=== PATIENT | male | born 1965 | race Caucasian/White ===

== ENCOUNTER 2016-07-19 09:59 | Inpatient (IN) | payer MEDICARE, OTHER ==
--- NOTE | ~2016-07-19 | CN ---
Consultation Report [facility] [address] [place]. [address] NAME: DAYA CARBALLO : 67 STATUS : ADM IN [facility]#: [id number] AGE: 51 ADM/REG DATE : 07/19/16 MR#: [id number] REPORT SERV DATE: 07/19/16 DICTATED BY: MICHAEL ALLEN IV DATE: 07/19/16 REPORT STATUS : Draft TRANSCRIBED BY: DEVIN DATE: 07/19/16 CRITICAL CARE CONSULT DATE OF CONSULTATION: 07/19/2016 REASON FOR REQUEST: Seizures, alcohol, and tobacco dependency status post radical neck dissection. History is obtained from the records and somewhat from the patient. HISTORY: Mr. 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 The patient initially presented in October of 2015 with difficulty swallowing. Evaluation demonstrated a mass in the epiglottic region extending into the arytenoids. The patient underwent radiation therapy, however, has had recent recurrence on biopsy in early June this year. The patient underwent radical neck dissection today. He was hemodynamically stable, however, sent to the ICU post procedure. He has the seizure disorder as noted, took his morning Dilantin dose. The patient currently drinks between 6 and 12 beers a day and states he has not had withdrawal symptoms in the past. He continues to be an active smoker at least a pack of cigarettes a day. He denies any chest pain or current dyspnea though is somewhat somnolent still postoperatively. He has a trach collar in position. PULMONARY HISTORY: Remarkable for no history of childhood asthma. I see no pulmonary function studies in the system, however, the patient has CT scan demonstrating centrilobular and paraseptal emphysematous changes. He is a current smoker nodding between 1 and two packs cigarettes a day. Smoking all of his life. He is currently disabled. Immunization status is not documented. PAST MEDICAL HISTORY: 1. Seizure disorder on Dilantin therapy. He nods that he has had no recent seizures. 2. Alcohol and tobacco dependency. 3. Recurrent squamous cell carcinoma in the supraglottic region. 4. Reflux disease. SURGERIES: 1. Hemicolectomy for diverticulitis. 2. Partial gastrectomy though the patient will not respond whether he had ulcers in the past. 3. Hernia repair with mesh replacement and removal. ALLERGIES: NO KNOWN DRUG ALLERGIES. CURRENT MEDICATIONS: I cannot find the patient's home med list, however, he nods that he is on Dilantin 200 mg twice a day. He has Xanax and oxycodone at home as well as a morphine ER. Consultation Report [facility] [address] [place]. [address] NAME: DAYA CARBALLO : 67 STATUS : ADM IN PAT#: [id number] AGE: 51 ADM/REG DATE : 07/19/16 MR#: [id number] REPORT SERV DATE: 07/19/16 DICTATED BY: MICHAEL ALLEN IV DATE: 07/19/16 REPORT STATUS : Draft TRANSCRIBED BY: DEVIN DATE: 07/19/16 SOCIAL HISTORY: Remarkable for 12 to 6 beers a day. He smokes 1-2 packs cigarettes a day, and he smokes marijuana. He denies illicit drug use. He is reportedly , has four children. FAMILY HISTORY: Remarkable for diabetes, unspecified cancer, stroke, and seizure activity. REVIEW OF SYSTEMS: A 14-systems reviewed and pertinent positives as noted above. PHYSICAL EXAMINATION: GENERAL: This is a chronically ill-appearing, thin elderly male, appearing older than stated age in no current distress. VITAL SIGNS: Temperature is 98, respiratory rate 16, saturation 98% on a trach collar. Pulse is 63, blood pressure is 157/76. HEENT EXAM: Normocephalic and atraumatic. Extraocular movements are intact. Pupils react to light. Sclerae and conjunctivae normal. He has a nasogastric tube in the right nares. He will not cooperate with exam of his mouth but appears to be edentulous. He has postsurgical changes of radical neck dissection with kat in position. He has an open tracheostomy with trach collar in position. I did not palpate his neck. CHEST: The patient has right greater than left expiratory rhonchi with decreased breath sounds. There are no crackles or true wheezes noted. CARDIOVASCULAR: Jugular venous pulsations are difficult to elicit. Carotids are not attempted with the recent surgery. He has a regular S1, S2 with no clear murmur or S3. Peripheral pulses are slightly diminished. ABDOMEN: The abdomen is scaphoid, large surgical scars noted. There is no palpable hepatosplenomegaly or mass. GENITOURINARY: The patient has normal male external genitalia. Shelley catheter in place. EXTREMITIES: Demonstrate no cyanosis, clubbing, or palpable cords. NEUROLOGIC: He is able to follow commands. Strength is 5-/5 and sensation intact to light touch. LABS: KUB demonstrates a nasogastric tube to be in the stomach. No chest x-ray has been obtained. CBC: Hemoglobin is 12.9, hematocrit 36.4, platelet count was 323,000. White count 11.3. Chemistries; sodium 140, potassium 3.9, chloride 103, bicarb 29, BUN 16, creatinine 0.87, glucose of 87, and calcium is 9.3. ASSESSMENT AND PLAN: 1. Respiratory. The patient likely has COPD with clear underlying emphysematous changes with centrilobular and paraseptal emphysema. He will be given albuterol 4 times a day per Dr. Erazo and q.2 hours as needed. He will be given Pulmicort 1 mg twice a day and Brovana unit dose twice a day. Chest x-ray will be obtained in the morning. Oxygen will be titrated to maintain saturation in the 90% to 94% range. Consultation Report [address] [place]. [address] NAME: DAYA CARBALLO : 67 STATUS : ADM IN [facility]#: [id number] AGE: 51 ADM/REG DATE : 07/19/16 MR#: [id number] REPORT SERV DATE: 07/19/16 DICTATED BY: MICHAEL ALLEN IV DATE: 07/19/16 REPORT STATUS : Draft TRANSCRIBED BY: DEVIN DATE: 07/19/16 2. Neurologic. Dilantin will be given via nasogastric tube 200 mg elixir twice a day, Dilantin level will be obtained. Thiamine will be given 200 mg IV in addition to a banana bag given by Dr. Erazo, Habitrol patch 21 mg a day for tobacco dependency. He will undergo seizure precautions and alcohol withdrawal precautions. Precedex will be given initially with the addition of Ativan if he is needing further medications. 3. Renal. Phos and Mag level will be added in the lab. Electrolyte replacement protocol has been ordered. Urinalysis will be obtained. 4. Endocrinologic. Thyroid functions will be obtained status post radiation to his neck. 5. Hematologic. Pneumatic compression stockings for deep vein thrombosis prophylaxis. 6. Gastrointestinal. Dietary consult has been ordered to initiate feeds tomorrow. Pepcid will be given for gastrointestinal prophylaxis. 7. Infectious disease. Empiric antibiotics have been ordered per ENT to include Cleocin and Ancef. 8. Cardiovascular. EKG will be obtained in the morning. Hydralazine will be given as needed for blood pressure greater than 160. Thank you for consulting us. We will follow patient with you. ALFONZO/DEVIN Michael Allen IV, M.D. / [id number] CC: Yordy Erazo M.D.
--- NOTE | ~2016-07-19 | OP ---
Record Of Operation [facility] [address] [place]. 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 PROCEDURE PERFORMED: 1. Total laryngectomy. 2. Bilateral neck dissections. 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 Postoperatively, the patient has had continued pain and difficulty with laryngeal use and decreased p.o. intake. He has had continued weight loss. Direct laryngoscopy and biopsy following treatment revealed extensive necrosis of the laryngeal cartilage, tissues, as well as some residual mass of squamous carcinoma. The patient was felt to benefit from total laryngectomy and bilateral neck dissection and was scheduled for such. OPERATIVE PROCEDURE AND FINDINGS: After informed consent was obtained, the patient was brought to the operating room, and placed on the operating table in a supine position, at which point, general endotracheal anesthesia was induced by Anesthesia Service following GlideScope intubation. The skin of the neck was prepped and draped in standard sterile fashion down to the costal margin. A U shaped incision was planned going from mastoid tip- to-mastoid tip and draping down into the lower neck. At this point, subplatysmal flap was elevated using Bovie cautery and this exposed the fascia layers of the anterior neck. The right neck was addressed first. The fiber lymphatic packet was grasped anterior to the sternocleidomastoid muscle and dissection was taken down sharply and bluntly down to the lateral floor of the neck. The soft tissue packet was taken from posterior to up and over the carotid, internal jugular vein and into the anterior neck. The process was repeated for the left neck. No sign of thoracic duct injury was noted in the left neck. At this point, the laryngectomy was begun. The hyoid bone was identified. The strap muscles were dissected off the superior surface of the hyoid bone and were detached from this area. At this point, the thyroid gland was dissected off the surface of the specimen and the right thyroid lobe was reflected laterally. The left thyroid lobe was sent with the specimen. The pharynx was then entered at approximately the level of the epiglottis with the epiglottic cartilage had been largely distorted by cancer and radiation. Once entered into the pharynx, a curved scissor such as a Metzenbaum scissor was used to excise the left lateral piriform sinus and left supraglottic tissues. Dissection was carried to the posterior aspect of the cricoid cartilage along the interarytenoid area and then carried up preserving the piriform sinus on the right side. This freed the superior aspect of the larynx from its connection to the pharyngeal mucosa. Dissection then began at the level of the trachea and the constitution party wall was identified and trachea and esophagus were . Record Of Operation [address] [place]. [address] NAME: DAYA CARBALLO : 67 STATUS : ADM IN PAT#: [id number] AGE: 51 ADM/REG DATE : 07/19/16 MR#: [id number] REPORT SERV DATE: 07/24/16 DICTATED BY: LUCIO ERAZO DATE: 07/24/16 REPORT STATUS : Draft TRANSCRIBED BY: DEVIN DATE: 07/24/16 Some sternohyoid muscles were preserved, covered the wound following excision. Next, a finger was inserted at the level of the pharynx into the upper esophagus and a 15 blade scalpel was used to make an incision through the pharyngeal constrictor muscles. With great care taken not to make a full-thickness incision into this mucosal region. This freed the larynx from the neck and the larynx was sent to pathology initially for frozen section to evaluate mucosal margins. The mucosa margins returned as free from the carcinoma in situ or invasive malignancy. The resulting laryngectomy defect was inspected and primary vertical closure was selected. The stump of the trachea was then sewn to the anterior neck after making a small notch within this inferior based skin fold. A 3-0 Vicryl suture was used for this in a three-point securing fashion. The laryngectomy defect in the pharynx was closed vertically using 3-0 chromic suture and a canal type stitch. This was then oversewn with a muscular layer using a locking type suture and finally strap muscle tissue was placed overlying this incision as well. Before complete closure, the pharynx was undertaken, an NG tube was placed into the right naris by Anesthesia and advanced through the pharynx under direct visualization into the esophagus. It was advanced approximately 65 cm. This was then secured using a 2-0 silk suture. Attention was then turned toward closure of the skin flap. The right thyroid lobe that had been preserve was saved laterally within the neck intact down to the undersurface of the sternocleidomastoid muscle. The clavicular head of the sternocleidomastoid muscle were divided adjacent to the sternum. At this point, two flat CHACHA drains were placed, one to the right lateral neck, one in the left lateral neck. The skin flap was then reapproximated using a 4-0 Vicryl suture in a simple fashion and skin was closed with surgical kat. The patient was then turned back toward Anesthesia, aroused from anesthesia, and taken to the postanesthesia care unit in satisfactory condition. COMPLICATIONS: None. ESTIMATED BLOOD LOSS: Less than 100 mL. IV FLUIDS: Per Anesthesia. DLA/MODL Lucio Erazo M.D. / [id number] CC: Lucio Erazo M.D.
--- NOTE | ~2016-07-19 | DS ---
Discharge Summary [facility] [address] [place]. [address] NAME: DAYA CARBALLO : 67 STATUS : DIS IN PAT#: [id number] AGE: 51 ADM/REG DATE : 07/19/16 MR#: [id number] REPORT SERV DATE: 09/14/16 DICTATED BY: LUCIO ERAZO DATE: 09/13/16 REPORT STATUS : Draft TRANSCRIBED BY: MODBrianna DATE: 09/13/16 ADMISSION DATE: 07/19/2016 DISCHARGE DATE: 08/02/2016 ADMITTING DIAGNOSIS: Squamous carcinoma of the supraglottic larynx. DISCHARGE DIAGNOSIS: Squamous carcinoma of the supraglottic larynx. ADMITTING HISTORY AND PHYSICAL: The patient is previously diagnosed with squamous cell carcinoma of the larynx and was treated with chemotherapy and radiation therapy. He had residual disease that was proven with direct laryngoscopy and biopsy. Also has increased pain and sensitivity in the larynx, and was felt to benefit from total laryngectomy. PAST MEDICAL HISTORY: Pertinent for anxiety, depression, reflex, and seizure disorder as well as his previous carcinoma of the larynx. PAST SURGICAL HISTORY: Included: Stomach resection and hernia repair. MEDICATIONS: Dilantin, Percocet, multivitamin, and Ambien. No known drug allergies were present. He did have alcohol and tobacco usage. FAMILY HISTORY: Pertinent for cancer, heart disease, and stroke. PHYSICAL EXAMINATION: GENERAL: He is awake, alert, in no acute distress. NECK: Markedly tender to palpation. HEENT: Examination of the ears shows normal canals. Nares are clear. Oral cavity shows no oral cavity lesions. Voice was hoarse. There was no stridor at this time. LUNGS: Clear to auscultation. HEART: Regular rate and rhythm. ABDOMEN: Soft and flat. EXTREMITIES: He was moving all extremities. He was felt to benefit from surgical resection and was taken to the operating room. HOSPITAL COURSE: The patient was admitted to the hospital following total laryngectomy on 07/19/2016. This was an eventful laryngectomy with fairly relaxed closure of the mucosal surfaces. He was admitted to the intensive care unit for observation following laryngectomy for treatment of his airway and drains. The patient had no problems immediately postoperatively. He was doing well. Pain control was performed with morphine OIL DELIVERER. Orders were written for a transfer to a monitored bed on 07/21/2016, postop day 2. He was noted on postop day 3, 07/22/2016 to have some increased erythema at his drain sites and Ancef was started given the increased edema and erythema as well as persistent mild leukocytosis. His white blood count was increased at 11.9. However, he remained afebrile. On the subsequent days, he demonstrated continued edema of the upper flap, and it was waited for a Gastrografin swallow, postop day 10. During this time, he had an uneventful hospital stay. Postop day 10, he underwent water-soluble contrast Gastrografin swallow and was found have a Discharge Summary [address] [address] NAME: DAYA CARBALLO : 67 STATUS : DIS IN PAT#: [id number] AGE: 51 ADM/REG DATE : 07/19/16 MR#: [id number] REPORT SERV DATE: 09/14/16 DICTATED BY: LUCIO ERAZO. DATE: 09/13/16 REPORT STATUS : Draft TRANSCRIBED BY: DEVIN DATE: 09/13/16 small leak. Dobhoff was left in place for a few more days while he continued his tube feeds and resting his pharynx. However, after being checked again, he continued to have a leak in the site, so arrangements were made for Dobhoff tube feeding at home. On 08/02/2016, after arrangements had been made for Dobhoff tube feeding at home, all of his drains were removed. The kat were removed from his wound. His stoma was healing appropriately. His erythema was decreasing. The patient was found to be stable for discharge and discharged to home. Followup was within 1 week for repeat Gastrografin swallow to further evaluate his pharyngeal anastomotic leak. No additional surgical intervention was needed for his leak at that time. He will continue n.p.o. status except for Dobhoff tube feeds including medications and liquid intake. SAGAR/DEVIN Lucio Erazo M.D. / [id number]
[~2016-07-19 09:59] MED LIST: ADVIL PO; D100 PO; HABIT14 TOP; INHALER INH; PERCOCET1 TA4 PO; ROXICODONE30 MG PO; ZANTAC 75 PO
[2016-07-19 10:40] LABS: BASOPHILS 0.6 %; BASOPHILS ABSOLUTE 0.07 10/3/uL (0.0-0.16); EOSINOPHILS 2.4 %; EOSINOPHILS ABSOLUTE 0.27 10/3/uL (0.0-0.53); HEMATOCRIT 36.4 % (40.0-51.0); HEMOGLOBIN 12.9 g/dL (13.6-17.8); IMMATURE GRANULOCYTES 0.2 %; IMMATURE GRANULOCYTES ABSOLUTE 0.02 10/3/uL (0.0-0.11); LYMPHOCYTES 12.5 %; LYMPHOCYTES ABSOLUTE 1.42 10/3/uL (0.67-4.30); MEAN CORPUS HGB CONC 35.4 g/dL (32.0-36.0); MEAN CORPUSCULAR HEMOGLOB 32.2 pg (26.0-34.0); MEAN CORPUSCULAR VOLUME 90.8 fL (80-100); MEAN PLATELET VOLUME 8.9 fL (9.2-13.0); MONOCYTES 4.8 %; MONOCYTES ABSOLUTE 0.54 10/3/uL (0.21-1.20); NEUTROPHILS 79.5 %; NEUTROPHILS ABSOLUTE 9.02 10/3/uL (2.02-8.40); PLATELET COUNT 323 10/3/uL (150-400); RBC DISTRIBUTION WIDTH 11.7 % (12.0-16.0); RED CELL COUNT 4.01 10/6/uL (4.7-6.1)
[2016-07-19 10:41] LABS: MANUAL DIFF NO %; WHITE BLOOD CELLS 11.3 10/3/uL (4.5-10.5)
[2016-07-19 10:45] LABS: PARTIAL THROMBO TIME 30.9 SEC (22.5-37.2); PROTIME (NOT ORD) 12.9 SEC (12.0-14.5)
[2016-07-19 10:52] LABS: BUN (BLOOD UREA NITROGEN) 16 MG/DL (6-23); CALCIUM, SERUM 9.3 MG/DL (8.5-10.4); CHLORIDE, SERUM 103 MMOL/L (96-112); CO2 (CARBON DIOXIDE) 29 MMOL/L (24-34); CREATININE 0.87 MG/DL (0.70-1.30); GFR AFRICAN AMERICAN 117 ML/MIN (>=60); GFR NON AFRICAN AMERICAN 101 ML/MIN (>=60); GLUCOSE, SERUM 87 MG/DL (60-99); POTASSIUM, SERUM 3.9 MMOL/L (3.5-5.3); SODIUM, SERUM 140 MMOL/L (135-148)
[2016-07-19 20:35] LABS: ALBUMIN 3.4 G/DL (3.5-5.0); ALKALINE PHOSPHATASE 101 U/L (45-117); DIRECT BILIRUBIN 0.1 MG/DL (0.0-0.4); FREE T4 1.07 NG/DL (0.76-1.46); INDIRECT BILIRUBIN(NOT ORDER) 0.3 MG/DL (0.1-0.9); PHOSPHORUS, SERUM 3.2 MG/DL (2.5-4.5); SGOT(AST) 24 U/L (5-40); SGPT(ALT) 26 U/L (5-65); TOTAL BILIRUBIN 0.4 MG/DL (0-1.2); TOTAL PROTEIN 7.5 G/DL (6.0-8.5)
[2016-07-19 20:37] LABS: DILANTIN (PHENYTOIN) < 0.4 MCG/ML (10.0-20.0)
[2016-07-19 22:48] LABS: ASCORBIC ACID (UR NOT ORDER) NEG (NEG); BILIRUBIN, URINE NEGATIVE (NEG); KETONE, URINE 20 MG/DL (NEG); LEUKOCYTE ESTERASE(NOT OR TRACE (NEG); WBC (NOT ORDERED) (RFLEX) 4 (0-5)
[2016-07-20 03:29] LABS: BASOPHILS 0.2 %; BASOPHILS ABSOLUTE 0.02 10/3/uL (0.0-0.16); EOSINOPHILS 0.2 %; EOSINOPHILS ABSOLUTE 0.02 10/3/uL (0.0-0.53); HEMOGLOBIN 10.7 g/dL (13.6-17.8); IMMATURE GRANULOCYTES 0.2 %; IMMATURE GRANULOCYTES ABSOLUTE 0.02 10/3/uL (0.0-0.11); LYMPHOCYTES 5.5 %; LYMPHOCYTES ABSOLUTE 0.63 10/3/uL (0.67-4.30); MEAN CORPUS HGB CONC 36.4 g/dL (32.0-36.0); MEAN CORPUSCULAR HEMOGLOB 32.4 pg (26.0-34.0); MEAN CORPUSCULAR VOLUME 89.1 fL (80-100); MEAN PLATELET VOLUME 8.5 fL (9.2-13.0); MONOCYTES 6.8 %; MONOCYTES ABSOLUTE 0.78 10/3/uL (0.21-1.20); NEUTROPHILS 87.1 %; NEUTROPHILS ABSOLUTE 9.96 10/3/uL (2.02-8.40); PLATELET COUNT 227 10/3/uL (150-400); RBC DISTRIBUTION WIDTH 11.6 % (12.0-16.0); WHITE BLOOD CELLS 11.4 10/3/uL (4.5-10.5)
[2016-07-20 03:30] LABS: HEMATOCRIT 29.4 % (40.0-51.0); MANUAL DIFF NO %
[2016-07-20 03:46] LABS: BUN (BLOOD UREA NITROGEN) 18 MG/DL (6-23); CHLORIDE, SERUM 104 MMOL/L (96-112); CO2 (CARBON DIOXIDE) 25 MMOL/L (24-34); CREATININE 0.73 MG/DL (0.70-1.30); GFR AFRICAN AMERICAN 125 ML/MIN (>=60); GFR NON AFRICAN AMERICAN 108 ML/MIN (>=60); PHOSPHORUS, SERUM 2.7 MG/DL (2.5-4.5); POTASSIUM, SERUM 4.1 MMOL/L (3.5-5.3); SODIUM, SERUM 138 MMOL/L (135-148)
[2016-07-20 03:48] LABS: CALCIUM, SERUM 7.8 MG/DL (8.5-10.4); GLUCOSE, SERUM 165 MG/DL (60-99)
[2016-07-20 15:46] LABS: SGOT(AST) 19 U/L (5-40); SGPT(ALT) 15 U/L (5-65); TOTAL BILIRUBIN 0.2 MG/DL (0-1.2)
[2016-07-20 15:47] LABS: A/G RATIO 0.8 (0.7-1.9); ALBUMIN 2.4 G/DL (3.5-5.0); ALKALINE PHOSPHATASE 70 U/L (45-117); GLOBULIN 3.2 G/DL (2.5-4.1); TOTAL PROTEIN 5.6 G/DL (6.0-8.5)
[2016-07-20 15:58] LABS: PREALBUMIN 10.5 MG/DL (17.0-43.0)
[2016-07-21 05:31] LABS: CALCIUM, SERUM 7.8 MG/DL (8.5-10.4); CHLORIDE, SERUM 101 MMOL/L (96-112); CO2 (CARBON DIOXIDE) 26 MMOL/L (24-34); GFR AFRICAN AMERICAN 136 ML/MIN (>=60); GFR NON AFRICAN AMERICAN 117 ML/MIN (>=60); GLUCOSE, SERUM 154 MG/DL (60-99); SODIUM, SERUM 136 MMOL/L (135-148)
[2016-07-21 05:34] LABS: BUN (BLOOD UREA NITROGEN) 12 MG/DL (6-23); PHOSPHORUS, SERUM 1.6 MG/DL (2.5-4.5)
[2016-07-22 04:30] LABS: ALBUMIN 2.2 G/DL (3.5-5.0); BUN (BLOOD UREA NITROGEN) 10 MG/DL (6-23); CALCIUM, SERUM 7.9 MG/DL (8.5-10.4); CHLORIDE, SERUM 100 MMOL/L (96-112); CO2 (CARBON DIOXIDE) 26 MMOL/L (24-34); CREATININE 0.58 MG/DL (0.70-1.30); GFR AFRICAN AMERICAN 138 ML/MIN (>=60); GFR NON AFRICAN AMERICAN 119 ML/MIN (>=60); GLUCOSE, SERUM 129 MG/DL (60-99); POTASSIUM, SERUM 4.1 MMOL/L (3.5-5.3); SODIUM, SERUM 136 MMOL/L (135-148)
[2016-07-22 04:33] LABS: PHOSPHORUS, SERUM 2.4 MG/DL (2.5-4.5)
[2016-07-23 05:57] LABS: BUN (BLOOD UREA NITROGEN) 10 MG/DL (6-23); CALCIUM, SERUM 8.5 MG/DL (8.5-10.4); CHLORIDE, SERUM 98 MMOL/L (96-112); CO2 (CARBON DIOXIDE) 28 MMOL/L (24-34); CREATININE 0.52 MG/DL (0.70-1.30); GFR AFRICAN AMERICAN 144 ML/MIN (>=60); GFR NON AFRICAN AMERICAN 124 ML/MIN (>=60); GLUCOSE, SERUM 105 MG/DL (60-99); PHOSPHORUS, SERUM 2.6 MG/DL (2.5-4.5); POTASSIUM, SERUM 4.4 MMOL/L (3.5-5.3); SODIUM, SERUM 134 MMOL/L (135-148)
[2016-07-25 04:56] LABS: BUN (BLOOD UREA NITROGEN) 11 MG/DL (6-23); CALCIUM, SERUM 9.2 MG/DL (8.5-10.4); CHLORIDE, SERUM 101 MMOL/L (96-112); CO2 (CARBON DIOXIDE) 26 MMOL/L (24-34); CREATININE 0.55 MG/DL (0.70-1.30); GFR AFRICAN AMERICAN 141 ML/MIN (>=60); GFR NON AFRICAN AMERICAN 122 ML/MIN (>=60); GLUCOSE, SERUM 112 MG/DL (60-99); POTASSIUM, SERUM 4.1 MMOL/L (3.5-5.3); SODIUM, SERUM 137 MMOL/L (135-148)
[2016-07-27 05:06] LABS: ALBUMIN 2.2 G/DL (3.5-5.0); BUN (BLOOD UREA NITROGEN) 13 MG/DL (6-23); CALCIUM, SERUM 8.4 MG/DL (8.5-10.4); CHLORIDE, SERUM 101 MMOL/L (96-112); CO2 (CARBON DIOXIDE) 29 MMOL/L (24-34); CREATININE 0.67 MG/DL (0.70-1.30); GFR AFRICAN AMERICAN 130 ML/MIN (>=60); GFR NON AFRICAN AMERICAN 112 ML/MIN (>=60); GLUCOSE, SERUM 100 MG/DL (60-99); PHOSPHORUS, SERUM 3.2 MG/DL (2.5-4.5); POTASSIUM, SERUM 4.1 MMOL/L (3.5-5.3); PREALBUMIN 12.7 MG/DL (17.0-43.0); SGOT(AST) 161 U/L (5-40); SGPT(ALT) 89 U/L (5-65); SODIUM, SERUM 137 MMOL/L (135-148); TOTAL BILIRUBIN 0.2 MG/DL (0-1.2); TOTAL PROTEIN 6.2 G/DL (6.0-8.5)
[2016-07-27 05:16] LABS: A/G RATIO 0.6 (0.7-1.9); ALKALINE PHOSPHATASE 184 U/L (45-117)
[2016-07-28 05:30] LABS: BUN (BLOOD UREA NITROGEN) 14 MG/DL (6-23); CALCIUM, SERUM 8.4 MG/DL (8.5-10.4); CHLORIDE, SERUM 99 MMOL/L (96-112); CO2 (CARBON DIOXIDE) 26 MMOL/L (24-34); CREATININE 0.63 MG/DL (0.70-1.30); GFR AFRICAN AMERICAN 133 ML/MIN (>=60); GFR NON AFRICAN AMERICAN 115 ML/MIN (>=60); PHOSPHORUS, SERUM 2.6 MG/DL (2.5-4.5); POTASSIUM, SERUM 4.5 MMOL/L (3.5-5.3); SODIUM, SERUM 132 MMOL/L (135-148)
[2016-07-28 05:31] LABS: GLUCOSE, SERUM 131 MG/DL (60-99)
[2016-08-02] MEDS ORDERED: PHENYUDL PEG (14:17)
[2016-08-02] MEDS ORDERED: HYCET 7.5 MG-3473 ML NGT (14:21)
[2016-08-02] MEDS ORDERED: NEO-OINT15 T (14:25)
[2016-08-02] MEDS ORDERED: ZOFRAN ODT4 MG PO (14:26)
== END 2016-08-02 18:48 | disposition home health service (06) | DRG 12 ==
LOC: SDC/OF 09:59 → PACU 16:32 → CCU 18:04 → 7NO 07-21 19:58
PROVIDERS: Internal Medicine Critical Care Medicine; Otolaryngology
PROC: 07T10ZZ Resection of Right Neck Lymphatic, Open Approach (ICD-10-PCS; 2016-07-19)
PROC: 0CTS0ZZ Resection of Larynx, Open Approach (ICD-10-PCS; principal; 2016-07-19 11:45)
PROC: 07T20ZZ Resection of Left Neck Lymphatic, Open Approach (ICD-10-PCS; 2016-07-19 11:45)
DX: C32.1 Malignant neoplasm of supraglottis (principal); K91.89 Other postprocedural complications and disorders of digestive system; J38.7 Other diseases of larynx; F10.20 Alcohol dependence, uncomplicated; G40.909 Epilepsy, unspecified, not intractable, without status epilepticus; F17.210 Nicotine dependence, cigarettes, uncomplicated; K21.9 Gastro-esophageal reflux disease without esophagitis; Y84.2 Radiological procedure and radiotherapy as the cause of abnormal reaction of the patient, or of later complication, without mention of misadventure at the time of the procedure; J44.9 Chronic obstructive pulmonary disease, unspecified; Z98.890 Other specified postprocedural states; Z83.3 Family history of diabetes mellitus; Z82.3 Family history of stroke; Z80.9 Family history of malignant neoplasm, unspecified; Z92.3 Personal history of irradiation
CPT/HCPCS: 71010; 74000; 74220; 80048; 80053; 80069; 80076; 80185; 81001; 82330; 82962; 83036; 83735; 84100; 84134; 84439; 84443; 85025; 85610; 85730; 87641; 88305; 88307; 88331; 88332; 88342; 93005; 94640; A9270-GY; J0330; J0690; J1170; J1652; J2250; J2270; J2370; J2405; J2550; J3010; J3411